=== PATIENT | female | born 1985 | race Caucasian/White ===

== ENCOUNTER 2017-07-28 09:16 | Outpatient (CLI) | payer BC ==
--- NOTE | 2017-07-28 12:21 | Ultrasound Report ---
PELVIC ULTRASOUND: 07/28/2017 CLINICAL INDICATION: Pain status post Mirena removal. TECHNIQUE: Transabdominal pelvic ultrasound performed for global evaluation. Transvaginal pelvic ul trasound performed for detailed evaluation. Real-time scanning performed and static images obtained. FINDINGS: The uterus is anteverted, measuring 9.9 x 3.7 x 3.2 cm. The endometrial echo complex rich ures 3 mm. No focal myometrial lesion is seen. The ovaries are normal, with the right measuring 4.1 x 3.4 x 2.3 cm and the left measuring 3.0 x 1.8 x 1.8 cm. A small amount of free fluid is seen in t he cul-de-sac. IMPRESSION: NORMAL PELVIC ULTRASOUND. JOB #: [id number] EXT JOB #:[id number]
== END 2017-07-28 09:17 | disposition home or self-care (01) ==
LOC: DI 09:16
PROVIDERS: ATTEND Physician Assistant Medical
DX: R10.2 Pelvic and perineal pain (principal)
CPT/HCPCS: 76830; 76856